=== PATIENT | female | born 1975 | race Two or more races ===

== ENCOUNTER 2016-04-17 20:43 | Emergency (ER) | payer MEDICAID ==
[~2016-04-17] VITALS: Ht 165.1 cm; Wt 104.3 kg
[2016-04-17 22:37] VITALS: BP 149/79
[2016-04-17] MEDS ORDERED: methylPREDNISolone SOD SUCC 125 MG/2 ML VL IM ONE (22:45)
[2016-04-17] MEDS ORDERED: DIAZEPAM 5 MG/ML 2ML SYRG IM ONE (22:45)
== END 2016-04-17 23:05 | disposition home or self-care (01) ==
LOC: ER 20:47
DX: M54.12 Radiculopathy, cervical region (principal); S46.912A Strain of unspecified muscle, fascia and tendon at shoulder and upper arm level, left arm, initial encounter; G89.29 Other chronic pain; M54.2 Cervicalgia; X58.XXXA Exposure to other specified factors, initial encounter; Y93.89 Activity, other specified; Y99.8 Other external cause status; Y92.89 Other specified places as the place of occurrence of the external cause
CPT/HCPCS: 96372; 99284; J2930; J3360